=== PATIENT | female | born 1950 | race Hispanic/Latino ===

== ENCOUNTER 2022-06-14 19:40 | Emergency (ER) | payer MEDICARE ==
[~2022-06-14] VITALS: Ht 144.8 cm; Wt 55.3 kg
[2022-06-14 21:07] LABS: BASOPHILS # (AUTO) 0.1 (0.0-0.1); BASOPHILS % 0.6 % (0.0-1.0); EOSINOPHILS # (AUTO) 0.1 (0.0-0.4); EOSINOPHILS % 1.4 % (0.0-6.0); HEMATOCRIT 41.1 % (34.2-44.1); HEMOGLOBIN 13.1 g/dL (12.0-16.0); LYMPHOCYTES # (AUTO) 2.8 (1.0-3.2); LYMPHOCYTES % 31.2 % (18.0-39.1); MEAN CORPUSCULAR HEMOGLOBIN 31.9 pg (28-32); MEAN CORPUSCULAR HGB CONC 31.9 g/dL (31-35); MONOCYTES # (AUTO) 0.6 (0.2-0.8); MONOCYTES % 6.9 % (4.4-11.3); NEUTROPHILS # (AUTO) 5.4 (2.1-6.9); NEUTROPHILS % 59.7 % (38.7-80.0); PLATELET COUNT 260 x10e3/uL (140-360); RED BLOOD COUNT 4.11 x10e6/uL (3.6-5.1); RED CELL DISTRIBUTION WIDTH 14.7 % (11.7-14.4)
[2022-06-14 21:51] LABS: ALBUMIN 3.8 g/dL (3.5-5.0); ANION GAP 14.8 mmol/L (8-16); CALCIUM 9.3 mg/dL (8.4-10.2); CREATININE, SERUM 0.92 mg/dL (0.57-1.11); POTASSIUM 3.8 mmol/L (3.5-5.1)
[2022-06-14] MEDS ORDERED: CLEOCIN HCL300 MG PO (22:04)
== END 2022-06-14 22:28 | disposition home or self-care (01) ==
LOC: ER 19:45
DX: L02.415 Cutaneous abscess of right lower limb (principal); I10 Essential (primary) hypertension; E03.9 Hypothyroidism, unspecified; J84.10 Pulmonary fibrosis, unspecified
CPT/HCPCS: 36415; 80053; 85025; 87040; 99283